=== PATIENT | male | born 1970 | race Caucasian/White ===

== ENCOUNTER 2016-12-17 00:18 | Emergency (ER) | payer MEDICARE, OTHER ==
[~2016-12-17] VITALS: Ht 162.6 cm; Wt 140.0 kg
[2016-12-17 00:20] VITALS: Ht 162.6 cm; Wt 140.0 kg
--- NOTE | 2016-12-17 00:28 | ERA ---
ER Documentation Chief Complaint Date/Time DATE: 12/17/16 TIME: 00:28 Chief Complaint Seizure HPI The patient is a 46-year-old male, presenting to the ER because of seizure at the sober living home, lasting for about 30 seconds according to EMS. He was postictal but became more coherent en route to the ER. He is now awake, alert, able to answer question appropriately. He denies any head pain, neck pain, tongue bite, fecal or urine incontinence, chest pain, abdominal pain, vomiting, dysuria, diarrhea. 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 Past medical history: AIDS, asthma, bipolar, depression Past surgical history: Left inguinal herniorrhaphy ROS All systems reviewed and are negative except as per history of present illness. Medications Home Meds Reported Medications Olanzapine* (Olanzapine*) 20 Mg Tablet, 20 MG PO QHS for BIPOLAR/DEPRESSION, # 30 TAB 12/17/16 Lamotrigine* (Lamotrigine*) 100 Mg Tablet, 100 MG PO BID for BIPOLAR DISORDER, TAB 12/17/16 Trazodone Hcl* (Trazodone Hcl*) 100 Mg Tablet, 100 MG PO QHS for depression/ insomnia, #30 TAB 12/17/16 Quetiapine Fumarate* (Seroquel*) 100 Mg Tablet, 100 MG PO HS for BIPOLAR TREATMENT, #30 TAB 12/17/16 Mirtazapine* (Mirtazapine*) 15 Mg Tablet, 15 MG PO HS for DEPRESSION, TAB 12/17/16 Dolutegravir Sodium (Tivicay) 50 Mg Tablet, 50 MG PO BID for HIV TREATMENT, TAB 12/17/16 Maraviroc (Selzentry) 150 Mg Tablet, 150 MG PO BID for HIV-1 TREATMENT, TAB 12/17/16 Darunavir/Cobicistat (Prezcobix 800 mg-150 mg Tablet) 1 Each Tablet, 1 EACH PO DAILY for HIV TREATMENT, TAB 12/17/16 Allergies Allergies: Coded Allergies: No Known Allergy (Unverified , 12/17/16) PMhx/Soc Medical and Surgical Hx: pt denies Surgical Hx Hx Respiratory Disorders: Yes (Asthma ) Hx Miscellaneous Medical Probl: Yes (HIV/AIDS 1989) Hx Alcohol Use: No Hx Substance Use: No (Marijuna ) Hx Tobacco Use: Yes Smoking Status: Current every day smoker Physical Exam Vitals Vital Signs Date Time Temp Pulse Resp B/P Pulse Ox O2 Delivery O2 Flow Rate FiO2 12/17/16 02:31 98.1 88 20 139/88 100 Room Air 12/17/16 00:20 98.1 98 20 148/84 100 Physical Exam Const: No acute distress. Head: Atraumatic. Eyes: Normal Conjunctiva. ENT: Normal External Ears, Nose and Mouth. Neck: Full range of motion. No meningismus. Resp: Clear to auscultation bilaterally. Cardio: Regular rate and rhythm, no murmurs. Abd: Soft, non distended, normal bowel sounds, non tender. Skin: No petechiae or rashes. Back: No midline or flank tenderness. Ext: No cyanosis, or edema. Neur: Awake and alert. No focal deficit. No tongue bite Psych: Normal Mood and Affect. Result Diagram: 12/17/16 0025 12/17/16 0025 Results 24 hrs Laboratory Tests Test 12/17/16 00:20 12/17/16 00:25 12/17/16 01:00 Prothrombin Time 12.3Sec Prothrombin Time Ratio 1.0 INR International Normalized Ratio 0.91 Activated Partial Thromboplast Time 24.9Sec White Blood Count 9.910^3/ul Red Blood Count 5.3110^6/ul Hemoglobin 16.3g/dl Hematocrit 48.8% Mean Corpuscular Volume 91.9fl Mean Corpuscular Hemoglobin 30.7pg Mean Corpuscular Hemoglobin Concent 33.4g/dl Red Cell Distribution Width 12.9% Platelet Count 15070^3/UL Mean Platelet Volume 9.6fl Neutrophils % 39.4% Lymphocytes % 47.0% Monocytes % 8.1% Eosinophils % 4.8% Basophils % 0.4% Nucleated Red Blood Cells % 0.0/100WBC Neutrophils # 3.910^3/ul Lymphocytes # 4.610^3/ul Monocytes # 0.810^3/ul Eosinophils # 0.510^3/ul Basophils # 0.010^3/ul Nucleated Red Blood Cells # 0.010^3/ul Sodium Level 140mmol/L Potassium Level 3.9mmol/L Chloride Level 100mmol/L Carbon Dioxide Level 24mmol/L Anion Gap 20 Blood Urea Nitrogen 11mg/dl Creatinine 0.83mg/dl Glucose Level 82mg/dl Calcium Level 9.5mg/dl Ethyl Alcohol Level < 10.0mg/dl Urine Opiates Screen NEGATIVE Urine Barbiturates NEGATIVE Urine Amphetamines Screen NEGATIVE Urine Benzodiazepines Screen NEGATIVE Urine Cocaine Screen NEGATIVE Urine Cannabinoids NEGATIVE Current Medications Medications (Trade) Dose Ordered Sig/Hayley Route PRN Reason Start Time Stop Time Status Last Admin Dose Admin Levetiracetam (Keppra 500 Mg/ 100ml (Pmx)) 100 ml @ 400 mls/hr ONCE ONCE IVPB 12/17/16 02:30 12/17/16 02:44 DC Procedures/MDM [place] [id number] Radiology Main Line: [phone] DIAGNOSTIC IMAGING REPORT Patient: ANNI PENNY : 1970 Age: 46 Sex: M MR #: [id number] DOS: 12/17/1627 Ordering MD: AVA LOJA MD Location: E/R Room/Bed: PROCEDURE: XR Chest. CLINICAL INDICATION: Seizure. TECHNIQUE: Single frontal chest x-ray. COMPARISON: None available. FINDINGS: The cardiomediastinal silhouette is unremarkable. No pneumothorax, pleural effusion or consolidation is seen. No acute osseous abnormality is noted. IMPRESSION: 1. No acute cardiopulmonary abnormality. RPTAT: HFN .Jordan Ramon MD, Date Time Electronically viewed and signed by .Jordan Ramon MD, on 12/17/2016 01: 38 .N/ CC: AVA LOJA MD [place] [address] Radiology Main Line: [phone] DIAGNOSTIC IMAGING REPORT Patient: ANNI PENNY : 1970 Age: 46 Sex: M MR #: [id number] DOS: 12/17/1627 Ordering MD: AVA LOJA MD Location: E/R Room/Bed: PROCEDURE: CT Brain without. CLINICAL INDICATION: Seizure. TECHNIQUE: A CT of the brain was performed on multidetector high-resolution CT scanner utilizing axial sections from the skull base through the vertex without contrast. The scan was reviewed in soft tissue brain and high frequency resolution bone algorithm windows. Images were reviewed on a high- resolution PACS workstation. One or more the following does reduction techniques were utilized: Automated exposure control, adjustment of the mA/ or kV according to patient's size, or use of iterative reconstruction technique. The exam CTDI = 45.01 mGy and the DLP = 810.25 mGy-cm. COMPARISON: None available. FINDINGS: The ventricles and sulci are minimally enlarged indicative of volume loss. There is no intracranial hemorrhage, mass effect or midline shift. No abnormal intra-axial or extra-axial fluid collections are seen. The camacho/white matter differentiation is preserved. No acute skull abnormality is noted. The visualized paranasal sinuses demonstrate mild scattered mucosal thickening more pronounced in the right maxillary sinus. The mastoid air cells are essentially clear. IMPRESSION: 1. No acute intracranial hemorrhage, transcortical infarction or mass effect. 2. Minimal generalized cerebral volume loss. RPTAT: HFN .Jordan Ramon MD, MD Date Time Electronically viewed and signed by .Jordan Ramon MD, MD on 12/17/2016 01: 42 .N/ CC: AVA LOJA MD EKG: Read by emergency physician Rate/Rhythm: Normal Sinus Rhythm 84 beats/min QRS, ST, T-waves: No ST elevation, no T inversion Impression: Normal EKG MEDICAL MAKING DECISION: The patient is a 46-year-old male, presenting with acute new onset seizure. He was treated with Keppra 500 mg IV. The differential diagnoses considered include but are not limited to subarachnoid hemorrhage, occult trauma, CVA, meningitis, encephalitis, hypertension, tension, migraine, cluster, narcotic withdrawal, cervical spine disease, brain tumor, meningitis. Departure Diagnosis: Primary Impression: New onset seizure Condition: Stable Comments I discussed the findings with the patient. I recommended admission, however he declined The patient signed out AGAINST MEDICAL ADVICE. Risks, benefits, alternatives were explained to the patient. Risks include but not limited to and permanent disability The patient's blood pressure was elevated (>120/80) but appears stable without evidence of hypertension emergency or urgency. The patient was counseled about the risks of hypertension and urged to pursue outpatient monitoring and therapy within a week with their primary care physician. AVA LOJA MD December 17, 2016 00:28
[2016-12-17 00:47] LABS: ADD SCAN DIFF NO
[2016-12-17 00:54] LABS: BASOPHILS % 0.4 % (0.0-2.0); EOSINOPHILS # 0.5 10^3/ul (0.0-0.5); EOSINOPHILS % 4.8 % (0.0-7.0); HEMATOCRIT 48.8 % (42.0-52.0); HEMOGLOBIN 16.3 g/dl (14.0-18.0); LYMPHOCYTES # 4.6 10^3/ul (0.8-2.9); MEAN CORPUSCULAR HEMOGLOBIN 30.7 pg (29.0-33.0); MEAN CORPUSCULAR HGB CONC 33.4 g/dl (32.0-37.0); MEAN CORPUSCULAR VOLUME 91.9 fl (82.0-101.0); MEAN PLATELET VOLUME 9.6 fl (7.4-10.4); MONOCYTE # 0.8 10^3/ul (0.3-0.9); MONOCYTES % 8.1 % (0.0-11.0); NEUTROPHIL # 3.9 10^3/ul (1.6-7.5); NEUTROPHILS % 39.4 % (39.0-77.0); PLATELET COUNT 272 10^3/UL (140-415); RED BLOOD COUNT 5.31 10^6/ul (4.70-6.10); RED CELL DISTRIBUTION WIDTH 12.9 % (11.5-14.5); WHITE BLOOD COUNT 9.9 10^3/ul (4.8-10.8)
[2016-12-17 01:01] LABS: BLOOD UREA NITROGEN 11 mg/dl (7-20); CALCIUM 9.5 mg/dl (8.4-10.2); CARBON DIOXIDE 24 mmol/L (21-31); CREATININE 0.83 mg/dl (0.61-1.24); GLUCOSE 82 mg/dl (70-220)
[2016-12-17 01:03] LABS: INR 0.91; PARTIAL THROMBOPLASTIN TIME 24.9 Sec (25.0-35.0); PROTIME 12.3 Sec (12.2-14.2)
[2016-12-17] MEDS ORDERED: LAMO100T PO (01:11)
[2016-12-17] MEDS ORDERED: MIRT15TA5 PO (01:11)
[2016-12-17] MEDS ORDERED: OLAN20TA7 PO (01:11)
[2016-12-17] MEDS ORDERED: QUET100T PO (01:11)
[2016-12-17] MEDS ORDERED: MARA150T4 PO (01:11)
[2016-12-17] MEDS ORDERED: DOLU50TA PO (01:11)
[2016-12-17] MEDS ORDERED: TRAZ100T15 PO (01:11)
[2016-12-17] MEDS ORDERED: DARU1TAB PO (01:11)
[2016-12-17 01:38] LABS: BARBITURATES NEGATIVE (NEGATIVE); BENZODIAZEPINES NEGATIVE (NEGATIVE); CANNABINOIDS NEGATIVE (NEGATIVE); COCAINE NEGATIVE (NEGATIVE); OPIATES NEGATIVE (NEGATIVE)
--- NOTE | 2016-12-17 01:38 | RADRPT ---
PROCEDURE: XR Chest. CLINICAL INDICATION: Seizure. TECHNIQUE: Single frontal chest x-ray. COMPARISON: None available. FINDINGS: The cardiomediastinal silhouette is unremarkable. No pneumothorax, pleural effusion or consolidation is seen. No acute osseous abnormality is noted. IMPRESSION: 1. No acute cardiopulmonary abnormality. RPTAT: HFN .Jordan Ramon MD, MD Date Time Electronically viewed and signed by .Jordan Ramon MD, on 12/17/2016 01:38 .N/
[2016-12-17 01:42] LABS: ANION GAP 20 (8-16); CHLORIDE 100 mmol/L (97-110); POTASSIUM 3.9 mmol/L (3.5-5.1); SODIUM 140 mmol/L (135-144)
--- NOTE | 2016-12-17 01:42 | RADRPT ---
PROCEDURE: CT Brain without. CLINICAL INDICATION: Seizure. TECHNIQUE: A CT of the brain was performed on multidetector high-resolution CT scanner utilizing a xial sections from the skull base through the vertex without contrast. The scan was reviewed in sof t tissue brain and high frequency resolution bone algorithm windows. Images were reviewed on a high -resolution PACS workstation. One or more the following does reduction techniques were utilized: Aut omated exposure control, adjustment of the mA/ or kV according to patient's size, or use of iterativ e reconstruction technique. The exam CTDI = 45.01 mGy and the DLP = 810.25 mGy-cm. COMPARISON: None available. FINDINGS: The ventricles and sulci are minimally enlarged indicative of volume loss. There is no intracranial hemorrhage, mass effect or midline shift. No abnormal intra-axial or extra-axial fluid collections are seen. The camacho/white matter differentiation is preserved. No acute skull abnormality is noted. T he visualized paranasal sinuses demonstrate mild scattered mucosal thickening more pronounced in the right maxillary sinus. The mastoid air cells are essentially clear. IMPRESSION: 1. No acute intracranial hemorrhage, transcortical infarction or mass effect. 2. Minimal generalized cerebral volume loss. RPTAT: HFN .Jordan Ramon MD, MD Date Time Electronically viewed and signed by .Jordan Ramon MD, MD on 12/17/2016 01:42 .N/
[2016-12-17 01:47] LABS: ETHANOL < 10.0 mg/dl
[2016-12-17] MEDS ORDERED: LEVETIRACETAM 500 MG (PMX) 100 ML IVPB ONE (02:30)
[2016-12-17 02:31] VITALS: BP 139/88; PULSE 88; RESP 20; TEMP 98.1
== END 2016-12-17 02:45 | disposition left against medical advice (07) ==
LOC: E/R 00:18
DX: R56.9 Unspecified convulsions (principal); J45.909 Unspecified asthma, uncomplicated; F17.210 Nicotine dependence, cigarettes, uncomplicated; R40.2142 Coma scale, eyes open, spontaneous, at arrival to emergency department; R40.2252 Coma scale, best verbal response, oriented, at arrival to emergency department; R40.2362 Coma scale, best motor response, obeys commands, at arrival to emergency department
CPT/HCPCS: 36415; 70450; 71010; 80048; 80306; 80307; 85025; 85610; 85730; 93005; J1953